=== PATIENT | female | born 1960 | race Caucasian/White ===

== ENCOUNTER 2022-10-08 17:50 | Emergency (ER) | payer SELFPAY ==
[2022-10-08 18:09] VITALS: BP 189/96; PULSE 66; RESP 16; TEMP 36.6; O2SAT 99; BMI 26.6
--- NOTE | 2022-10-08 18:22 | ED_ITS ---
HPI - General Adult General Chief complaint: Psychiatric Problem/Disorder Stated complaint: Emotionally Distressed Time Seen by Provider: 10/08/22 17:53 History of Present Illness HPI narrative: Patient is a 62-year-old female has had lot of cycle sources stressors with family, who has had history of anxiety as well. She reports that she has had significant problems with her family. This is caused a whole lot of stress. Patient reports no physical ailments, she has had a history of depression. At this point she reports to me that she is not suicidal, but she does feel she needs some mental health help. She does not have a therapist and really no local physician. She lives in [place]. Will attempt to set up to see primary care in [place] as well. No chest pain breathing problem drugs or alcohol use. No Tylenol or aspirin use. Related Data Home Medications Medication Instructions Recorded Confirmed clonidine HCl 0.2 mg tablet 0.2 mg PO DAILY 10/08/22 10/08/22 fluoxetine 20 mg capsule 40 mg PO DAILY 10/08/22 10/08/22 tizanidine 2 mg tablet 2 mg PO Q6H PRN muscle spasm 10/08/22 10/08/22 Allergies Allergy/AdvReac Type Severity Reaction Status Date / Time Penicillins Allergy Unknown Verified 10/08/22 18:16 Sulfa (Sulfonamide Allergy Verified 10/08/22 18:16 Antibiotics) Review of Systems Status of ROS: Reports: 6 or more systems reviewed and unremarkable except as noted in History and below PFSH PFSH Social History Smoking Status: Unknown if ever smoked Exam Narrative: Exam Narrative: Objective: Vital signs showed elevated blood pressure Alert orient x3 mildly stressed No facial asymmetry no scleral icterus Mouth clear Chest clear Heart rhythm regular no murmur Abdomen benign Extremities are no edema neurologic nonfocal Const: Vital Signs, click to edit/add: Vital Signs - 24 hr 10/08/22 18:09 Temperature 98 F Pulse Rate [Pulse Oximeter] 66 Respiratory Rate 16 Blood Pressure [Ri ght Upper Arm] 189/96 H Pulse Oximetry 99 Oxygen Delivery Me thod Room Air Course Vital Signs Vital signs: Initial Vital Signs Temperature 98 F 10/08/22 18:09 Temperature Source Temporal Artery Scan 10/08/22 18:09 Pulse Rate 66 10/08/22 18:09 Pulse Rhythm Regular 10/08/22 18:09 Pulse Strength 3+ Normal 10/08/22 18:09 Respiratory Rate 16 10/08/22 18:09 Blood Pressure 189/96 H 10/08/22 18:09 Blood Pressure Mean 127 H 10/08/22 18:09 Blood Pressure Position Semi-Fowlers 10/08/22 18:09 Pulse Oximetry 99 10/08/22 18:09 Oxygen Delivery Method Room Air 10/08/22 18:09 Vital Signs Temperature 98 F 10/08/22 18:09 Pulse Rate 66 10/08/22 18:09 Respiratory Rate 16 10/08/22 18:09 Blood Pressure 189/96 H 10/08/22 18:09 Pulse Oximetry 99 10/08/22 18:09 Oxygen Delivery Method Room Air 10/08/22 18:09 Temperature 98 F 10/08/22 18:09 Pulse Rate 66 10/08/22 18:09 Respiratory Rate 16 10/08/22 18:09 Blood Pressure 189/96 H 10/08/22 18:09 Pulse Oximetry 99 10/08/22 18:09 Oxygen Delivery Method Room Air 10/08/22 18:09 Medical Decision Making MDM Narrative Medical decision making narrative: 62 year white female with history of depression with lot of psychosocial stressors. History of depression. Patient this point I think would recommend deck Telehealth assessment, she is not suicidal at present, perhaps an outpatient treatment plan be appropriate for her and outpatient therapy. Will check her labs and typical psychiatric screening tests. If these are reassuring disposition pending the Telehealth assessment. Addendum: The patient's tox screen is negative. At this point she is awake alert non intoxicated. She denies suicidality, denies any homicidality a crow or suicide plan or ideation. The patient this point feels frustrated by the lack of help she has received in the past from professional people. She wants to leave and be discharged. She does have a deck Telehealth assessment within the next 20-30 minutes. , but given that she is not suicidal and not holdable at this point I think she is free to leave. Asked her to follow up with primary care in the next 1-2 days or return to the ED as desired. Stressed to her the my recommendations strongly is that she talk to the mental health professional. And get whatever help set up that she needs that is deemed appropriate. She is competent understand that I believe. She still lacks to want to go home. I will have her sign against medical advice as my advice is to have her stay and get a Telehealth assessment. Lab Data Labs: Lab Results 10/08/22 10/08/22 Range/Units 18:35 18:40 WBC 6.87 (4.50-11.00) K/uL RBC 4.21 (4.00-5.20) m/uL Hgb 12.4 (12.0-16.0) gm/dL Hct 37.0 (33.0-51.0) % MCV 88 (80-100) fL MCH 30 (26-34) pg MCHC 34 (32-36) gm/dL RDW Coeff of Marianne 12.1 (11.5-15.5) % Plt Count 251 (140-440) K/uL Neut % (Auto) 52.0 (42.0-72.0) % Lymph % (Auto) 39.3 (20-44) % [place] % (Auto) 7.0 (0.0-11.0) % Eos % (Auto) 1.3 (0.0-7.0) % Baso % (Auto) 0.3 (0.0-3.0) % Neut # (Auto) 3.57 (1.7-7.0) K/uL Lymph # (Auto) 2.70 (0.90-2.90) K/uL [place] # (Auto) 0.50 (0.00-0.90) K/UL Eos # (Auto) 0.09 (0.00-0.50) K/uL Baso # (Auto) 0.02 (0.00-0.30) K/uL Sodium Cancelled Potassium Cancelled Chloride Cancelled Carbon Dioxide Cancelled BUN Cancelled Creatinine Cancelled Estimated Creat Clear Cancelled Estimated GFR Cancelled Glucose Cancelled Calcium Cancelled TSH 6.780 H (0.270-4.20) uIU/mL Urine Opiates Screen Negative (Negative) Ur Oxycodone Screen Negative (Negative) Urine Methadone Screen Negative (Negative) Ur Propoxyphene Screen Negative (Negative) Acetaminophen Cancelled Ur Barbiturates Screen Negative (Negative) U Tricyclic Antidepress Negative (Negative) Ur Phencyclidine Scrn Negative (Negative) Ur Amphetamines Screen Negative (Negative) U Methamphetamines Scrn Negative (Negative) U Benzodiazepines Scrn Negative (Negative) Urine Cocaine Screen Negative (Negative) U Marijuana (THC) Screen Negative (Negative) Ur Drug Screen Comment See Note Discharge Plan Discharge Clinical Impression: Depression, Psychosocial stressors Patient Disposition: Left Against Medical Advice Condition: Stable Additional Instructions: Rest, light activity, follow up with primary care in the next 1-2 days, we strongly recommend to get a telehealth assessment, but you chose to leave. You are free to return as needed to the emergency department at any time. I would also recommend a recheck with her regular doctor as above. Activity Level: Light activity Discharge Diet: Regular Prescriptions: No Action tizanidine 2 mg tablet 2 mg PO Q6H PRN (Reason: muscle spasm) clonidine HCl 0.2 mg tablet 0.2 mg PO DAILY fluoxetine 20 mg capsule 40 mg PO DAILY Stand Alone Forms: [employer] Info Instructions
[2022-10-08 18:39] LABS: Basophils Absolute Auto 0.02 K/uL (0.00-0.30); Basophils Percent Auto 0.3 % (0.0-3.0); Eosinophils Absolute Auto 0.09 K/uL (0.00-0.50); Eosinophils Percent Auto 1.3 % (0.0-7.0); Hemoglobin* 12.4 gm/dL (12.0-16.0); Immature Granulocytes Abs Auto 0.01 K/uL (0.00-0.30); Immature Granulocytes Pct Auto 0.1 %; Lymphocytes Percent Auto 39.3 % (20-44); Mean Corpuscular HGB Conc 34 gm/dL (32-36); Mean Corpuscular Hemoglobin 30 pg (26-34); Mean Corpuscular Volume 88 fL (80-100); Neutrophils Absolute Auto 3.57 K/uL (1.7-7.0); Platelet Count* 251 K/uL (140-440); RDW Coefficient of Variation % 12.1 % (11.5-15.5); Red Blood Count 4.21 m/uL (4.00-5.20); White Blood Count* 6.87 K/uL (4.50-11.00)
[2022-10-08 18:52] LABS: Slide Review Reflex No
[2022-10-08 19:07] LABS: Amphetamine Screen Urine Negative (Negative); Barbiturate Screen Urine Negative (Negative); Benzodiazepines Screen Urine Negative (Negative); Cannabinoid Screen Urine Negative (Negative); Cocaine Screen Urine Negative (Negative); Methadone Screen Urine Negative (Negative); Methamphetamines Screen Urine Negative (Negative); Opiate Screen Urine Negative (Negative); Oxycodone Screen Urine Negative (Negative); Phencyclidine Screen Urine Negative (Negative); Tricyclic Antidepressant Urine Negative (Negative)
--- NOTE | 2022-10-08 19:12 | ED.NURSE ---
Pt stating she wants to leave AMA. notified. MD spoke with pt and convinced pt to stay to complete DEC assessment. Pt provided with her cell phone at MD direction.
--- NOTE | 2022-10-08 19:24 | ED.NURSE ---
Pt requesting to leave AMA again at this time. Pt frustrated that [place] [facility] did not take her to [facility]. Pt reminded that DEC assessment was to take place within 10 minutes. Pt states she does not want to wait the 10 mins and wants to leave. MD Means notified and aware. Pt signed AMA form and went out to lobby.
[2022-10-08 21:20] LABS: Albumin* 4.4 g/dL (3.3-5.0); Chloride* 107 mmol/L (96-114)
[2022-10-08 21:21] LABS: Potassium* 3.8 mmol/L (3.6-5.1); Sodium* 143 mmol/L (135-149)
[2022-10-08 21:23] LABS: Alkaline Phosphatase* 52 U/L (40-150); Aspartate Amino Transferase* 29 U/L (12-35); Bilirubin Direct* 0.2 mg/dL (0.0-0.5); Bilirubin Total* 0.3 mg/dL (0.1-1.5); Blood Urea Nitrogen* 15 mg/dL (7-30); Calcium* 10.3 mg/dL (8.4-10.6); Carbon Dioxide* 28 mmol/L (20-32); Est. Creatinine Clearance* 56.72; Estimated Glomerular Filt Rate 64 ml/min; Glucose* 102 mg/dL (60-115); Total Protein* 7.5 g/dL (6.0-8.3)
[2022-10-08 21:24] LABS: Alanine Aminotransferase* 16 U/L (4-35); Salicylate* 6.5 mg/dL (1.0-10)
[2022-10-08 21:26] LABS: Acetaminophen* < 10.0 ug/mL (10.0-30.0); Ethanol* < 0.01 % (0.01-0.03)
[2022-10-08 22:55] LABS: Slide Review Acceptable Review (Acceptable)
== END 2022-10-08 19:27 | disposition left against medical advice (07) ==
PROVIDERS: Emergency Provider Family Medicine
DX: F32.A Depression, unspecified (principal); F43.9 Reaction to severe stress, unspecified; Z53.29 Procedure and treatment not carried out because of patient's decision for other reasons
CPT/HCPCS: 36415; 80048; 80076; 80143; 80179; 80306; 82077; 84443; 85025; 99283; 99284

== ENCOUNTER 2022-12-08 01:04 | Outpatient (CLI) | payer SELFPAY | END 2022-12-08 01:05 | disposition home or self-care (01) | LOC: AMB 12-10 12:59 | PROVIDERS: Visit Provider Family Medicine | DX: R44.1 Visual hallucinations (principal) ==

== ENCOUNTER 2022-12-08 03:23 | Outpatient (CLI) | payer SELFPAY | END 2022-12-08 03:24 | disposition home or self-care (01) | PROVIDERS: Visit Provider Family Medicine | DX: R44.1 Visual hallucinations (principal) | CPT/HCPCS: A0425; A0429 ==

== ENCOUNTER 2024-12-03 17:02 | Outpatient (CLI) | payer OTHER, SELFPAY | END 2024-12-03 17:03 | disposition home or self-care (01) | LOC: AMB 12-05 13:34 | PROVIDERS: Visit Provider Internal Medicine | DX: R55 Syncope and collapse (principal); R51.9 Headache, unspecified | CPT/HCPCS: A0425; A0427 ==

== ENCOUNTER 2024-12-03 17:26 | Emergency (ER) | payer OTHER, SELFPAY ==
--- OUTSIDE RECORDS SUMMARY | 2024-11-28 11:26 | XMS_ITS | Encounter Summary ---
Author Organization [facility] Address [address] [place] [id number] Care Team Providers Care Manager Social Services Name Role Phone Elsewhere, Pcp Primary Care Provider Unavailabl e Encounter Details Date Type Department Care Team (Latest Contact Info) Description 11/28/2024 11:26 AM CDT - 11/28/2024 11:59 PM CDT Hospital Encounter Department of Laboratory Medicine and Pathology, [facility], in [place], [place] [address] [place] [phone] Tadeo Chirinos M.D. [address] [place] [phone] Change Mental Status; Unspecified Dementia, Moderate, With Other Behavioral Disturbance (HCC) Discharge Disposition: Home or Self Care Social History Tobacco Use Types Packs/Day Years Used Date Smoking Tobacco: Never Smokeless Tobacco: Never Alcohol Use Standard Drinks/Week Comments Never 0 (1 standard drink = 0.6 oz pur e alcohol) [facility] Utilities Answer Date Recorded In the past 12 months has e electric, gas, oil, or water company threatened to shut off services in your home? No 10/07/2024 Humiliation, Afraid, Rape, and Kick questionnair e Answer Date Recorded Within the last year, have y ou been afraid of your partner or ex-partner? No 07/01/2024 Within the last year, have y ou been humiliated or emotionally abused in other ways by your partner or ex-partner? No Within the last year, have y ou been kicked, hit, slapped, or otherwise physically hurt by your partner or ex-partner? No 07/01/2024 Within the last year, have y ou been raped or forced to have any kind of sexual activity by your partner or ex-partner? No 07/01/2024 Hunger Vital Sign Answer Date Recorded Within the past 12 months, y ou worried that your food would run out before you got the money to buy more. Never true 10/08/19 25 Within the past 12 months, t he food you bought just didn't last and you didn't have money to get more. Never true 10/07/2024 PRAPARE - Transportation Answer Date Re corded In the past 12 months, has l ack of transportation kept you from medical appointments or from getting medications? No 09/25 In the past 12 months, has l ack of transportation kept you from meetings, work, or from getting things needed for daily living? No 10/07/2024 Depression Answer Date Recor ded PHQ-9 Total Score (max 27) 7 07/20 Housing Stability Answer Date Recorded What is your living situation today? 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 120 capsule 07/20/2024 cholecalciferol (VITAMIN D3) 1,000 Unit tablet Take 1 tablet by mouth daily. 03/19/2012 cyanocobalamin (Vitamin B-12) 1,000 mcg tablet Take 1 tablet (1,000 mcg total) by mouth daily. 30 tablet 07/20/2024 FLUoxetine (PROzac) 40 mg capsule Take 2 capsules (80 mg total) by mouth daily. 60 capsule 07/20/2024 levothyroxine 75 mcg tablet Take 1 tablet (75 mcg total) by mouth daily. 30 tablet 07/20/2024 loperamide (Imodium A-D) 2 mg capsule Take 2 mg by mouth daily as needed for diarrhea. multivitamin tablet Take 1 tablet by mouth daily. 03/19/2012 omeprazole (PriLOSEC) [address] capsule Take 1 capsule (40 mg total) by mouth every morning before breakfast. 90 capsule 3 04/07/2022 rivastigmine (Exelon Patch) 4.6 mg/24 hour Apply 1 patch every AM for 4 weeks. If symptoms not better, switch to 9.5 mg/24 hr patch Rx. 28 patch 11/28/2024 rivastigmine (Exelon Patch) 9.5 mg/24 hour If symptoms not better with 4.6 mg/24 hr patch, switch to 9.5 mg/24 hr patch and apply 1 daily per med sched. 30 patch 12 11/28/2024 tiZANidine (Zanaflex) 2 mg tablet Take 1 tablet (2 mg total) by mouth every 6 (six) hours as needed for muscle spasms. 90 tablet 3 07/20/2024 documented as of this encounter Plan of Treatment Not on file documented as of this encounter Procedures Procedure Name Priority Date/Time Associated Diagnosis Comments PHOSPHO-TAU(217), P Routine 11/28/2024 1 1:41 AM CDT Change Mental Status Unspecified Dementia, Moderate, With Other Behavioral Disturbance (HCC) documented in this encounter Results * (ABNORMAL) Phospho-Tau 217 (11/28/2024 11:41 AM CDT) [id number], P 0.994(H) pg/mL 11/28/2024 3:30 PM CDT [facility] Comment: ----REFERENCE VALUE---- Negative: < or = 0.185 pg/mL Intermediate: 0.186 - 0.324 pg/mL Positive: > or = 0.325 pg/mL [id number] Interpretation SEE COMMENT 11/28/2024 3:30 PM T [facility] Comment: An elevated (positive) [id number] result is consistent with a positive (abnormal) amyloid positron emission tomography (PET) scan result. This result is consistent with the presence of neuropathological changes associated with Alzheimer's disease. In the proper clinical context, this test is supportive of Alzheimer's disease being related to current clinical symptoms. This test has not been demonstrated to provide information on the risk of an asymptomatic individual developing symptoms related to Alzheimer's disease in the future. Clinical performance of this test was established in a study of 427 individuals, 50 years and older, with mild cognitive impairment or early dementia. The prevalence of amyloid pathology was 64% as defined by amyloid-PET and a Centiloid of > or = 25. For detection of an abnormal amyloid- PET, the test sensitivity at the lower cutpoint (< or = 0.185 pg/mL) was 92% and the specificity at the upper cutpoint (> or = 0.325 pg/mL) was 96%. The diagnostic performance of this test has not been established in asymptomatic individuals. Elevations of [id number] may be seen in individuals with impaired kidney function associated with chronic kidney disease and should be interpreted with caution in these situations. ----ADDITIONAL INFORMATION---- This test was developed and its performance characteristics determined by [facility] in a manner consistent with CLIA requirements. This test has not been cleared or approved by the U.S. Food and Drug Administration. The testing method is a chemiluminescent enzyme immunoassay manufactured by [employer] and performed on the [employer] analyzer. Values obtained with different assay methods or kits may be different and cannot be used interchangeably. This test is not intended as a screening or standalone diagnostic assay; correlation with clinical findings is recommended. Blood (Blood, Venous) 11/28/2024 11:41 AM CDT 11/28/2024 2:53 PM CDT us Tadeo Chirinos M.D. LAB BLOOD NON ADD-ON Final Re sult [facility] [address] [place] [address] [facility] [address] [place] [place] [address] documented in this encounter Visit Diagnoses Diagnosis Change Mental Status Unspecified Dementia, Moderate, With Other Behavioral Disturbance (HCC) documented in this encounter Additional Health Concerns Assessment Noted Time PHQ-9 Depression Total Score: 7 07/21/19 25 1:00 PM CDT documented as of this encounter Care Teams Manager Social Services Relationship Specialty Start Date End Date Elsewhere, Pcp PCP - General Internal Medicine 06/30/24 documented as of this encounter
--- OUTSIDE RECORDS SUMMARY | 2024-11-28 12:30 | XMS_ITS | Encounter Summary ---
Author Organization [facility] Address [address] [place] [id number] Care Team Providers Care Radio Station Engineer Name Role Phone Elsewhere, Pcp Primary Care Provider Unavailabl e Reason for Visit * Outpatient (Routine) - Closed Specialty Diagnoses / Procedures Referred By Christianne lowry Referred To Contact Neurology Diagnoses NA Tadeo Chirinos M.D. [address] [place] [phone] Phone: tel: fax: [facility] Referral ID Status Reason Start Date Expiration Date Visits Re quested Visits Authorized [id number] Closed 10/07/2024 04/08/2026 1 1 Encounter Details Date Type Department Care Team ([facility] Contact Info) Description 11/28/2024 12:30 PM CDT Office Visit Department of Neurology in [place], [place] [address] [place] [phone] Tadeo Chirinos M.D. 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 - 11/28/2024 12:30 PM CDT SUBJECTIVE CHIEF COMPLAINT / REASON FOR VISIT Susan Tomlin is a 64 y.o. female who presents for evaluation of Cognitive Change. HISTORY OF PRESENT ILLNESS This is a 64 year old I previously evaluated with concern for early onset Alzheimer's Disease. Her [id number] was positive at .994. Her B12 was above normal at 1308, Folate was 20, TSH was 16.7, T4was .8, and TPO antibodies were 214. Her PET CT scan (listed in my prior note) is strongly consistent with Alzheimer's Disease. Donepezil was not tolerated due to headaches. ASSESSMENT / PLAN #1) Moderate Dementia, 2/2 to Alzheimer's Disease #2) Early Onset Alzheimer's Disease This patient is a 64 y.o. female who presents with multi-domain moderate dementia that is secondaryto Alzheimer's Disease. We discussed that safety would be the most important consideration moving forward, and that the patient should not drive, should have assistance handling medications, and should not manage finances independently. There should be supervision if the patient is at home, and avoiding time alone is recommended. She did not tolerate donepezil, therefore we will switch to rivastigmine at a dose of 4.6 mg per 24hours, if this is tolerated she will increase to 9.5 mg per 24 hours in 1 month's time. If this is prohibitively expensive through her insurance, we will switch to [employer]. We will also have the patient meet back with our social work colleagues to discuss further the diagnosis and resources that would be available to them. I would be happy to see her back in the future. Tadeo Chirinos [id number] Today, I personally spent 30 minutes with the patient, of which greater than 50% of the time was spent in patient education, counseling, and coordination of care as described above. Cosigned by Javed Machuca M.D. at 11/28/2024 4:24 PM CDT documented in this encounter Plan of Treatment Not on file documented as of this encounter Visit Diagnoses Diagnosis Alzheimer's Disease (HCC)- Primary documented in this encounter Additional Health Concerns Assessment Noted Time PHQ-9 Depression Total Score: 7 07/21/19 25 1:00 PM CDT documented as of this encounter Care Teams Radio Station Engineer Relationship Specialty Start Date End Date Elsewhere, Pcp PCP - General Internal Medicine 06/30/24 documented as of this encounter
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
[2024-12-03] VITALS (7 sets, daily range): BP systolic 134–138; BP diastolic 78–91; PULSE 63–70; RESP 13–26; TEMP 36.3; O2SAT 93–100
--- OUTSIDE RECORDS SUMMARY | 2024-12-03 17:29 | XMS_ITS | Encounter Summary ---
Author Organization [facility] Address [address] [place] [address] Care Team Providers Care Upholstery Tech Name Role Phone Elsewhere, Pcp Primary Care Provider Unavailabl e Encounter Details Date Type Department Care Team (Latest Contact Info) Description 05/19/2024 Intake [facility] Social History Tobacco Use Types Packs/Day Years Used Date Smoking Tobacco: Never Smokeless Tobacco: Never Alcohol Use Standard Drinks/Week Comments Never 0 (1 standard drink = 0.6 oz pur e alcohol) [place] Utilities Answer Date Recorded In the past 12 months has e [employer], gas, oil, or water [employer] threatened to shut off services in your [...] your living situation today? I have a [facility] place to live 10/07/2024 Comments No Sex and Gender Information Value Date Recorded Sex Assigned at Female 10/07/2024 1:30 PM CDT Legal Sex Female 5:53 PM ELECTRONIC COMPONENT PROCESSOR Gender Identity Female 10/07/2024 1:30 PM CDT Sexual Orientation Straight 10/07/2024 1: 30 PM CDT documented as of this encounter Plan of Treatment Not on file documented as of this encounter Visit Diagnoses Not on filedocumented in this encounter Additional Health Concerns Infection Onset Date Last Indicated Resolved Time COVID19 Pending 05/19/2024 05/19/2024 05/20/2024 1 2:26 AM ELECTRONIC COMPONENT PROCESSOR Assessment Noted Time PHQ-9 Depression Total Score: 10 014 9:25 AM CDT documented as of this encounter Care Teams Upholstery Tech Relationship Specialty Start Date End Date Elsewhere, Pcp PCP - General Internal Medicine 06/30/24 documented as of this encounter
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
--- OUTSIDE RECORDS SUMMARY | 2024-12-03 17:29 | XMS_ITS | Clinical Summary ---
Author Organization [facility] Address [address] [place] [id number] Care Team Providers Care Program Paraprofessional Name Role Phone No Ref-Primary, Physician Primary Care Provider Allergies Active Allergy Reactions Criticality Noted Date Comments Nitrofurantoin 10/26/2013 Penicillins 10/26/2013 Sulfa Antibiotics 10/26/2013 Medications FLUoxetine HCl (PROZAC PO) Take 60 mg by mouth daily Active VITAMIN D, CHOLECALCIFEROL , PO Take 5,000 Units by mouth daily Active cyanocobalamin 1000 MCG/ML injection Take 1 mL by mouth daily Active CLONAZEPAM PO Take 1 mg by mouth daily Active Cyclobenzaprine HCl (FLEXERIL PO) Take 10 mg by mouth Active conjugated estrogens (PREMARIN) vaginal creamIndication s:Atrophic vaginitis Place vaginally three times a week 30 g 6 4 Active clonazePAM (KLONOPIN) 1 MG tablet Take 1 tablet (1 mg) by mouth 2 times daily as needed for anxiety 10 tablet 4 Active tiZANidine (ZANAFLEX) 2 MG tablet Take 1 tablet (2 mg) by mouth 3 times daily 10 tablet 4 Active hydrOXYzine HCl (ATARAX) 25 MG tablet Take 1 tablet (25 mg) by mouth 3 times daily as needed for itching 10 tablet 4 Active Active Problems Problem Noted Date Diagnosed Date Major depressive disorder, recurrent episode, mi ld 05/12/2023 Social History Tobacco Use Types Packs/Day Years Used Date Smoking Tobacco: Never Alcohol Use Standard Drinks/Week Comments Yes 0 (1 standard drink = 0.6 oz pur e alcohol) 1-3 a month, rarely Adolescent Education Answer Date Record ed Getting School Help Needed Not on file 01/24 Comments No Sex and Gender Information Value Date Recorded Sex Assigned at Not on file Legal Sex Female 4:41 AM [employer] AP[employer]ICE [employer] Gender Identity Not on file Sexual Orientation Not on file Last Filed Vital Signs Vital Sign Reading Time Taken Comments Blood Pressure 138/94 05/12/2023 7:56 PM [employer] AP[employer]ENTICE MECH[employer]IC Simultaneous filing. User may not have seen previous data. Pulse 68 05/12/2023 7:56 PM AUT[employer] APPRENTICE MECHANIC Simultaneous filing. User may not have seen previous data. Temperature 35.9 C (96.7 F) 05/12/2023 5:57 PM [employer] AP[employer]ENTICE MECH[employer]IC Respiratory Rate 18 05/12/2023 7:56 PM AUTO APPRENTICE MECHANIC Simultaneous filing. User may not have seen previous data. Oxygen Saturation 98% 05/12/2023 7:5 6 PM AUTO APPRENTICE MECHANIC Simultaneous filing. User may not have seen previous data. Inhaled Oxygen Concentration - - Weight 79.4 kg (175 lb) 06/01/2022 10:4 1 AM [employer] APPRENTICE MECH[employer]IC Height 170.2 cm (5' 7) 06/01/2022 10:4 1 AM AUTO APPRENTICE MECHANIC Body Mass Index 27.41 06/01/2022 10:41 AM AUTO APPRENTICE MECHANIC Plan of Treatment Health Maintenance Due Date Last Done Comments ADVANCE CARE PLANNING 1960 ANNUAL REVIEW OF HM ORDERS 1960 CT COLONOGRAPHY 1960 DEPRESSION ACTION PLAN 1960 DIABETES SCREENING 1960 FIT 1960 FLEX SIG 1960 MAMMO SCREENING 1960 PHQ-9 1960 sDNA (Cologuard) 1960 YEARLY PREVENTIVE VISIT 08/29/1963 COLONOSCOPY 1970 COLORECTAL CANCER SCREENING 1970 HIV SCREENING 08/29/1975 HEPATITIS C SCREENING 1978 PAP 1981 LIPID 2000 PNEUMOCOCCAL VACCINE 50+ YEARS (1 of 1 - PCV) 2010 ZOSTER VACCINE (1 of 2) 2010 DTAP/TDAP/TD VACCINE (2 - Td or Tdap) 08/04/2021 08/05/2011, 02/02/2004, 02/02/2004 COVID-19 VACCINE (3 - 2023-2 5 season) 2023 10/01/2020, 09/10/2020 INFLUENZA VACCINE (#1) 2024 RSV VACCINE (1 - 1-dose 75+ series) 08/29/2035 HPV VACCINE (No Doses Required) Completed MENINGITIS VACCINE Aged Out No longer eligible based on patient's age to complete this topic Insurance [employer] Care Teams Program Paraprofessional Relationship Specialty Start Date End Date No Ref-Primary, Physician PCP - General 05/12/23
--- OUTSIDE RECORDS SUMMARY | 2024-12-03 17:29 | XMS_ITS | Clinical Summary ---
Author Organization [facility] Address [address] [place] [address] Care Team Providers Care [employer] Name Role Phone Needs Pcp, Assignment Primary Care Provider [phone] Source Comments You are receiving this document as you are listed as the primary care provider,follow-up provider, or the patient has been referred to you for consultation.This is in compliance with the Medicare and[facility] EHR Incentive Program,which states Providers who transition their patient to another setting of careor provider of care or refers their patient to another provider of care shouldprovide summary care record for each transition of care or referral. [facility] Allergies Active Allergy Reactions Criticality Noted Date Comments Penicillins Other, see comments 02/16/2023 As a child Sulfa Antibiotics Rash 02/16/2023 Medications FLUoxetine HCl (PROZAC OR) Active cloNIDine (CATAPRES) 0.2 MG tablet Take 1 Tablet (0.2 mg) by mouth daily. 08/29/2022 Active hydrOXYzine HCl (ATARAX) 25 MG tablet Take 1 Tablet (25 mg) by mouth every 6 hours as needed. Active cholecalciferol (VITAMIND3) 10 MCG (400 UNIT) tablet Take 12.5 Tablets (5,000 Units) by mouth. Active tiZANidine (ZANAFLEX) 2 MG tablet Take 1 Tablet (2 mg) by mouth every 6 hours as needed. Active cyanocobalamin ([id number]) 1000 MCG/ML injection Take 1,000 mcg by mouth. Active clonazePAM (KLONOPIN) 1 MG tablet Take 1 Tablet (1 mg) by mouth. Active FLUoxetine (PROZAC) 20 MG capsule Take 3 Capsules (60 mg) by mouth daily. Active Active Problems Problem Noted Date Diagnosed Date Severe episode of recurrent major depressive disorder, with psychotic features 12/08/2022 Positive colorectal cancer screening using Colog uard test 11/18/2019 Overview (04/27/2023): Colonoscopy 10/2019 long colon, repeat cologuard in 1 year, repeat in 10 years with propofol Obstructive sleep apnea 12/28/2014 Basal cell carcinoma of skin 08/03/2014 Overview (04/27/2023): Chest, excised 07/25/14, borders clear. Needs skin checks [id number] x 1yr then annually Anxiety 07/25/2014 IBS (irritable bowel syndrome) 04/11/2014 Migraine 02/17/2014 Sensorineural hearing loss, asymmetrical 014 Hypothyroidism 12/13/2009 Immunizations Immunization Administration Dates Next Due Measles 09/11/1977 Pfizer Monovalent 12+ Purple Top 10/01/2020,0510/2020 Td 02/02/2004 Tdap 08/05/2011 Social History Tobacco Use Types Packs/Day Years Used Date Smoking Tobacco: Never Assessed Comments No Sex and Gender Information Value Date Recorded Sex Assigned at Not on file Legal Sex Female 1:19 PM CDT Gender Identity Not on file Sexual Orientation Not on file Last Filed Vital Signs Vital Sign Reading Time Taken Comments Blood Pressure 139/84 02/16/2023 10:20 AM CDT Pulse 66 02/16/2023 10:20 AM CDT Temperature - - Respiratory Rate - - Oxygen Saturation - - Inhaled Oxygen Concentration - - Weight 76.7 kg (169 lb) 02/16/2023 10:20 AM CDT Height - - Body Mass Index - - Plan of Treatment Health Maintenance Due Date Last Done Comments Cervical Cancer Screening Due 1960 Colon Cancer Screening Plan Due 1960 Hep C Screening (Preventive Services) 1960 Mammogram 1960 HIV Screening (Preventive Services) 1976 Adult Preventive Visit 1978 Cholesterol 2005 Pneumococcal Vaccine 50+ Yrs (1 of 1 - PCV) 2010 Zoster/Shingles Vaccine (1 o f 2) 2010 DTaP/Tdap/Td Vaccine (2 - Tdap) 08/04/2021 08/05/2011, 02/02/2004 COVID-19 Vaccine (3 - 2023-2 5 season) 2023 10/01/2020, 09/10/2020 Influenza Vaccine (#1) 2024 RSV Vaccine (1 - 1-dose 75+ series) 08/29/2035 HepA Vaccine Aged Out No longer eligi ble based on patient's age to complete this topic HepB Vaccine Aged Out No longer eligi ble based on patient's age to complete this topic Hib Vaccine Aged Out No longer eligi ble based on patient's age to complete this topic IPV (Polio) Vaccine Aged Out No longe r eligible based on patient's age to complete this topic MCV4 Vaccine Aged Out No longer eligi ble based on patient's age to complete this topic Meningococcal B Vaccine Aged Out No l onger eligible based on patient's age to complete this topic Care Teams [employer]ist Relationship Specialty Start Date End Date Needs Pcp, [place] [address] PCP - General 04/02/23
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
--- NOTE | 2024-12-03 17:53 | ED.GENADULT ---
HPI - General Adult General Chief complaint: Syncope/Fainted Stated complaint: Heat Exhaustion Time Seen by Provider: 12/03/24 17:33 History of Present Illness HPI narrative: Patient is a 64-year-old woman who has diagnosis of dementia who presents after having an episode of lightheadedness and presyncope [place] local [place]. She did not fall she did not hit her head she had no palpitations no nausea no vomiting no fevers no chills. Patient felt extremely weak but has not had enough to drink today and feels dehydrated. She did come in by ambulance. She is oriented to person and place. No other complaints. Related Data Home Medications ?Medication ?Instructions ?Recorded ?Confirmed acyclovir 200 mg capsule 400 mg PO BID 12/03/24 12/03/24 fluoxetine 40 mg capsule 80 mg PO DAILY 12/03/24 12/03/24 levothyroxine 75 mcg tablet 75 mcg PO QAM 12/03/24 12/03/24 omeprazole 20 mg capsule,delayed 20 mg PO DAILY 12/03/24 12/03/24 release Allergies Allergy/AdvReac Type Severity Reaction Status Date / Time Penicillins Allergy Unknown Verified 10/08/22 18:16 Sulfa (Sulfonamide Allergy Verified 10/08/22 18:16 Antibiotics) Review of Systems Status of ROS: Reports: 10 or more systems reviewed and unremarkable except as noted in History and below [facility] Social History Smoking Status: Unknown if ever smoked How often do you have a drink containing alcohol: never How often do you have six or more drinks on one occasion: Never AUDIT-C Alcohol total score: 0 Non-prescribed substance use: denies use Exam Narrative: Exam Narrative: EXAM GENERAL: Patient appears comfortable and well. EYES: No scleral icterus. LYMPH: No supraclavicular or cervical lymphadenopathy. SKIN: Visible skin seen during exam normal or with benign process only. EXT: No dependent lower extremity pedal edema. HEART: Regular rate and rhythm with no murmurs, rubs, or gallops. LUNGS: Clear to auscultation bilaterally with no crackles or wheezes. ABD: Soft, non tender, non distended. PSYCH: Good eye contact, speech is not pressured. Const: Vital Signs, click to edit/add: Vital Signs - 24 hr 12/03/24 17:34 12/03/24 17:37 12/03/24 17:45 Temperature 97.3 F L Pulse Rate 69 63 Pulse Rate [Right Pulse Oximeter] 70 Respiratory Rate 22 18 26 H Blood Pressure Blood Pressure [Ri ght Upper Arm] 138/91 H Pulse Oximetry 100 99 100 Oxygen Delivery Me thod Room Air 12/03/24 18:00 12/03/24 18:15 12/03/24 18:16 Temperature Pulse Rate 68 64 64 Pulse Rate [Right Pulse Oximeter] Respiratory Rate 16 20 20 Blood Pressure 134/78 Blood Pressure [Ri ght Upper Arm] Pulse Oximetry 99 93 95 Oxygen Delivery Me thod 12/03/24 18:30 Temperature Pulse Rate 63 Pulse Rate [Right Pulse Oximeter] Respiratory Rate 13 Blood Pressure Blood Pressure [Ri ght Upper Arm] Pulse Oximetry 98 Oxygen Delivery Me thod Course Course ED Course: Patient seen and examined. Will given additional 500 mL of saline as she got 1 L in ambulance. I did send off troponin D-dimer CBC comprehensive metabolic panel EKG. Vital Signs Vital signs: Initial Vital Signs Pulse Rate 69 12/03/24 17:34 Respiratory Rate 22 12/03/24 17:34 Pulse Oximetry 100 12/03/24 17:34 Vital Signs Pulse Rate 69 12/03/24 17:34 Respiratory Rate 22 12/03/24 17:34 Pulse Oximetry 100 12/03/24 17:34 Temperature 97.3 F L 12/03/24 17:37 Pulse Rate 63 12/03/24 18:30 Respiratory Rate 13 12/03/24 18:30 Blood Pressure 134/78 12/03/24 18:15 Pulse Oximetry 98 12/03/24 18:30 Oxygen Delivery Method Room Air 12/03/24 17:37 Medications Administered Medications: Generic Name Dose Route Start Last Admin Trade Name Freq PRN Reason Stop Dose Admin Sodium Chloride 500 mls @ 500 mls/hr 12/03/24 17:53 12/03/24 18:15 0.9 % Sodium Chloride 500 Ml IV 12/03/24 18:52 500 mls/hr .Q1H CODEY Administration Medical Decision Making MDM Narrative Medical decision making narrative: Patient presents after having a near syncopal event had a local fair. She received hydration. Her troponin was negative. She has normal vital signs. She is requesting to go home and I think that is reasonable after a brief hydration. Rest for laboratory studies are reasonable. Will make no other changes at her to continue her current medications follow-up with her primary physician as needed. Lab Data Labs: Lab Results 12/03/24 Range/Units 18:04 WBC 6.87 (4.50-11.00) K/uL RBC 4.12 (4.00-5.20) m/uL Hgb 12.0 (12.0-16.0) gm/dL Hct 36.1 (33.0-51.0) % MCV 88 (80-100) fL MCH 29 (26-34) pg MCHC 33 (32-36) gm/dL RDW Coeff of Marianne 13.0 (11.5-15.5) % Plt Count 263 (140-440) K/uL Neut % (Auto) 66.7 (42.0-72.0) % Lymph % (Auto) 25.2 (20-44) % Mcdonald % (Auto) 6.6 (0.0-11.0) % Eos % (Auto) 1.3 (0.0-7.0) % Baso % (Auto) 0.1 (0.0-3.0) % Neut # (Auto) 4.58 (1.7-7.0) K/uL Lymph # (Auto) 1.73 (0.90-2.90) K/uL Mcdonald # (Auto) 0.50 (0.00-0.90) K/UL Eos # (Auto) 0.09 (0.00-0.50) K/uL Baso # (Auto) 0.01 (0.00-0.30) K/uL Abs Immat Gran (auto) 0.01 (0.00-0.30) K/uL Imm/Tot Granulo (auto) 0.1 % D-Dimer Quant (PE/DVT) < 0.27 (0.00-0.50) ug/ml Sodium 139 (135-149) mmol/L Potassium 3.5 L (3.6-5.1) mmol/L Chloride 107 (96-114) mmol/L Carbon Dioxide 23 (20-32) mmol/L Anion Gap 9 (7-15) mEq/L BUN 12 (7-30) mg/dL Creatinine 1.1 (0.5-1.5) mg/dL Estimated GFR 56 ml/min Glucose 145 H (60-115) mg/dL Calcium 9.7 (8.4-10.6) mg/dL Troponin I < 0.01 (0.01-0.04) ng/mL Discharge Plan Discharge Clinical Impression: Dehydration Patient Disposition: Home, Self-Care Condition: Stable Additional Instructions: Continue current medication Rest Fluids Follow-up with your doctor as needed. Activity Level: No Restrictions Discharge Diet: Regular Prescriptions: No Action fluoxetine 40 mg capsule 80 mg PO DAILY levothyroxine 75 mcg tablet 75 mcg PO QAM omeprazole 20 mg capsule,delayed release(DR/EC) 20 mg PO DAILY acyclovir 200 mg capsule 400 mg PO BID Follow Up/Referrals: Provider,Not a Local [Primary Care Provider, Family Practice] Stand Alone Forms: [facility] Info Instructions
[2024-12-03] MEDS: 0.9 % SODIUM CHLORIDE 500 ML 500 ML IV (18:15)
[2024-12-03 18:20] LABS: Hematocrit 36.1 % (33.0-51.0); Hemoglobin* 12.0 gm/dL (12.0-16.0); Immature Granulocytes Abs Auto 0.01 K/uL (0.00-0.30); Immature Granulocytes Pct Auto 0.1 %; Lymphocytes Absolute Auto 1.73 K/uL (0.90-2.90); Mean Corpuscular HGB Conc 33 gm/dL (32-36); Mean Corpuscular Hemoglobin 29 pg (26-34); Mean Corpuscular Volume 88 fL (80-100); RDW Coefficient of Variation % 13.0 % (11.5-15.5); Red Blood Count 4.12 m/uL (4.00-5.20); White Blood Count* 6.87 K/uL (4.50-11.00)
[2024-12-03 18:26] LABS: Chloride* 107 mmol/L (96-114)
[2024-12-03 18:27] LABS: Potassium* 3.5 mmol/L (3.6-5.1); Sodium* 139 mmol/L (135-149)
[2024-12-03 18:29] LABS: Slide Review Reflex No
[2024-12-03 18:30] LABS: Anion Gap 9 mEq/L (7-15); Blood Urea Nitrogen* 12 mg/dL (7-30); Calcium* 9.7 mg/dL (8.4-10.6); Carbon Dioxide* 23 mmol/L (20-32); Creatinine* 1.1 mg/dL (0.5-1.5); Estimated Glomerular Filt Rate 56 ml/min; Glucose* 145 mg/dL (60-115)
[2024-12-03 18:45] LABS: D Dimer Quantitative* < 0.27 ug/ml (0.00-0.50)
== END 2024-12-03 19:04 | disposition home or self-care (01) ==
PROVIDERS: Emergency Provider Internal Medicine
DX: R55 Syncope and collapse (principal); E86.0 Dehydration
CPT/HCPCS: 36415; 80048; 84484; 85025; 85379; 99283; J7030